=== PATIENT | female | born 1955 | race Caucasian/White ===

== ENCOUNTER 2019-07-02 05:55 | Inpatient (IN) ==
--- NOTE | 2019-05-23 11:39 | Anesthesiology Consultation ---
Date of Service May 23, 2019 Assessment & Plan (1) Encounter for pre-operative examination: Chart Review Chart Review: Acceptable Risk for Surgery (pending preop testing (labs, EKG, CXR)) and Patient seen in Pre Admission Testing Teaching & Discussion Pre-Anesthesia Teaching/Discussion Notes: Instructed NPO after midnight before surgery,except medications with 15 cc of water. Medication instructions provided according to the PAT guidelines. History Surgery Operation Date: 07/02/19 07:00 Proposed Procedures p Right Total Knee Arthroplasty - Levi Hunter MD Height/Weight Height: 5 ft 3 in Weight: 128.5 kg Allergies Allergy/AdvReac Type Severity Reaction Status Date / Time latex Allergy Rash Verified 05/16/19 08:34 Medications Home Medications Medication Instructions Recorded Confirmed Last Taken celecoxib [Celebrex] 200 mg PO QAM 05/16/19 05/16/19 Unknown cholecalciferol (vitamin D3) 5,000 unit PO QAM 05/16/19 05/16/19 Unknown [Vitamin D3] diltiazem HCl 120 mg PO QAM 05/16/19 05/16/19 Unknown hydrocodone-chlorpheniramine 5 ml PO Q12H PRN 05/16/19 05/16/19 Unknown levothyroxine 25 mcg PO QAM 05/16/19 05/16/19 Unknown pantoprazole 40 mg PO QPM 05/16/19 05/16/19 Unknown potassium 99 mg PO BID 05/16/19 05/16/19 Unknown topiramate [Topamax] 50 mg PO QAM 05/16/19 05/16/19 Unknown vortioxetine [Trintellix] 20 mg PO QAM 05/16/19 05/16/19 Unknown albuterol sulfate PRN 05/23/19 Unknown Past Medical History Medical History CKD (chronic kidney disease) Chronic cough allergies related- reason for inhaler (rare use) Depression GERD (gastroesophageal reflux disease) controlled Hiatal hernia History of breast cancer s/p right breast lumpectomy + chemo/radiation (completed 2011); RUE limb restriction Hypertension Hypothyroidism Migraine Morbid obesity Osteoarthritis Past Family History Family History Mother Family history of diabetes mellitus Father Family hx of colon cancer Past Surgical History Surgical History History of breast biopsy BL History of colonoscopy History of lumpectomy of right breast History of lymph node excision Rt axilla History of tonsillectomy and adenoidectomy History of tooth extraction History of vascular access device Removed Past Anesthesia History No Family Hx of Anesthesia Complications and Other During right breast lumpectomy, patient "woke up too early" and became combative/thrashed and "pulled out ETT and tore stitches" 2010. No similar issues with other surgeries/anesthesia. History of PONV No Hx of PONV and Hx of Motion Sickness (remote hx) Social History Smoking Status: Never smoker Do You Dip or Chew Tobacco: No Hx Alcohol Use: Yes alcohol intake frequency: holidays/special occasions only Hx Substance Use: No substance use type: does not use Review of Systems Chronic, allergies-related cough. Reflux controlled. Patient denies chest pain, shortness of breath, wheezing, palpitations. Physical Exam Vital Signs VITALS BP 146/85 P 86 TEMP 97.9 SP02 94%RA RESP 18 PHYSICAL Full neck and c-spine range of motion. Full TMJ range of motion. TMD 4 finger breaths Mallampati Score 2 Dentition: intact, cap on side Lungs: clear throughout to auscultation Cardiac: regular rate and rhythm, no murmurs noted Spine: normal Carotid arteries: negative bruit Extremities: no edema Short, thick neck
--- NOTE | 2019-05-23 11:51 | PAT Medication Instructions ---
Medication Instructions Date of Service May 23, 2019 Home Medications celecoxib [Celebrex] 200 mg PO QAM cholecalciferol (vitamin D3) [Vitamin D3] 5,000 unit PO QAM diltiazem HCl 120 mg PO QAM hydrocodone-chlorpheniramine 5 ml PO Q12H PRN levothyroxine 25 mcg PO QAM pantoprazole 40 mg PO QPM potassium 99 mg PO BID topiramate [Topamax] 50 mg PO QAM vortioxetine [Trintellix] 20 mg PO QAM albuterol sulfate PRN ASK your surgeon for instructions celecoxib [Celebrex] 200 mg PO QAM DO NOT take the morning of surgery cholecalciferol (vitamin D3) [Vitamin D3] 5,000 unit PO QAM potassium 99 mg PO BID Take morning of surgery With a small sip of water, OTHERWISE NOTHING TO EAT OR DRINK AFTER MIDNIGHT: diltiazem HCl 120 mg PO QAM hydrocodone-chlorpheniramine 5 ml PO Q12H PRN (okay to take up to 4 hours prior to surgery if needed) levothyroxine 25 mcg PO QAM topiramate [Topamax] 50 mg PO QAM vortioxetine [Trintellix] 20 mg PO QAM albuterol sulfate PRN (use if needed; please bring with you to hospital day of surgery if possible) Take evening before surgery hydrocodone-chlorpheniramine 5 ml PO Q12H PRN (if needed) pantoprazole 40 mg PO QPM potassium 99 mg PO BID albuterol sulfate PRN (if needed) Other Notes If you have any questions please call us at [phone] or [phone] or [phone] or [phone]
--- NOTE | 2019-05-23 12:19 | XRay Report ---
TWO VIEW CHEST CLINICAL HISTORY: Preoperative examination. FINDINGS: PA and lateral chest radiographs are obtained. No prior studies are available for compariso n at the time of dictation. The cardiomediastinal silhouette is unremarkable. The lungs and pleura l spaces are clear. There is no pneumothorax. The bony thorax appears intact. IMPRESSION: No active disease in the chest. Electronically signed by: Florentin Porter M.D. 05/23/2019 12:18 PM
[2019-05-23 13:14] LABS: Basophils # (auto) 0.02 K/uL (0-0.2); Basophils % (auto) 0.3 %; Eosinophils # (auto) 0.36 K/uL (0-0.5); Eosinophils % (auto) 4.5 %; Hematocrit (blood only) 35.7 % (37-47); Hemoglobin 12.2 g/dL (12.0-16.0); Immature Granulocytes # (auto) 0.03 K/uL (0.00-0.02); Immature Granulocytes % (auto) 0.4 %; Lymphocytes # (auto) 2.17 K/uL (1.2-3.4); Lymphocytes % (auto) 27.2 %; Mean Corpuscular Hemoglobin 31.4 pg (25-34); Mean Corpuscular Hgb Conc 34.2 g/dL (32-36); Mean Corpuscular Volume 91.8 fL (80-100); Mean Platelet Volume 10.5 fL (7.4-10.4); Monocytes # (auto) 0.67 K/uL (0.11-0.59); Monocytes % (auto) 8.4 %; Neutrophils # (auto) 4.74 K/uL (1.4-6.5); Neutrophils % (auto) 59.2 %; Platelet Count 275 K/uL (130-400); RDW Coefficient of Variation 14.4 % (11.5-14.5); RDW Standard Deviation 48.1 fL (36.4-46.3); Red Blood Count 3.89 M/uL (4.2-5.4); White Blood Count 7.99 K/uL (4.8-10.8)
[2019-05-23 13:26] LABS: Partial Thromboplastin Time 25.8 Seconds (21.0-31.0); Prothrombin Time 9.8 Seconds (9.0-12.0)
--- NOTE | 2019-06-28 09:43 | History and Physical Report ---
DATE OF ADMISSION: 07/02/2019 CHIEF COMPLAINT: Bilateral knee pain and discomfort, right side greater than left. HISTORY OF PRESENT ILLNESS: The patient is a 63-year-old female referred to me by my partner, Dr. Rhodes for surgical treatment of her knees. She has got a long history of bilateral knee pain and discomfort that has gradually just gotten worse over the past several years. She has been through extensive conservative treatment including various anti-inflammatory medicines as well as injections. This has become less successful over time. The right knee bothers her more than left. It is global pain. The more she walks, the more it hurts. She has difficulty going up and down stairs. She would like to proceed with a right knee replacement. PAST MEDICAL HISTORY: Significant for: 1. Hypertension. 2. Asthma. 3. Sleep apnea. 4. Hypothyroidism. 5. Low back pain. 6. Gastroesophageal reflux disease. 7. Hiatal hernia. 8. Obesity with a BMI of 50. 9. History of breast cancer in remission. PAST SURGICAL HISTORY: Previous surgeries include: 1. Tonsillectomy as a child. 2. Breast lumpectomy in 2010. ALLERGIES: LATEX. CURRENT MEDICINES: Include: 1. Topamax 50 mg. 2. Diltiazem 120 mg. 3. Celebrex 200 mg. 4. Trintellix 20 mg a day for depression. 4. Lisinopril/hydrochlorothiazide 20/12.5 once a day. 5. Potassium 99 mEq twice a day. 6. Pantoprazole 40 mg a day. SOCIAL HISTORY: A 63-year-old female patient. Does not smoke. FAMILY HISTORY: Noncontributory. REVIEW OF HISTORY: Negative for diabetes, neurologic problems, vascular problems or bleeding disorders. No chest pain or shortness of breath. No history of DVT or PE. PHYSICAL EXAMINATION: GENERAL: Reveals a healthy, pleasant middle-aged female. Looks to be in reasonably good health. HEENT: Benign. NECK: Supple, no lymphadenopathy. LUNGS: Clear to auscultation. HEART: Regular rate and rhythm. ABDOMEN: Soft, nontender, nondistended. EXTREMITIES: Grossly neurovascularly intact except as follows: Examination of the right knee reveals the patient walks with slightly antalgic gait. She waddles from side to side. She has got a large soft tissue envelope. Range of motion is 0-120. She can do a good straight leg raise. No pain with hip motion. Examination of the left hip reveals fairly neutral alignment. Minimal knee effusion. Large soft tissue envelope. Tender over the medial joint line. Range of motion is 0-120. No instability. X-RAYS: X-rays of both knees reveal advanced bilateral knee DJD. She has got complete loss of medial joint space in both knees. She has got osteophytes off the medial femoral condyle and medial tibial plateau on both sides. X-rays are pretty equal in severity. ASSESSMENT: A 63-year-old female with advanced bilateral knee degenerative joint disease, right side more symptomatic than the left. She has failed conservative treatment and would like to proceed with surgery/knee replacement. PLAN: We will take her to the operating room and do a right total knee replacement. The risks and benefits of this procedure were explained to the patient including but not limited to DVT, PE, , infection, neurological injury, vascular injury, bleeding problem, pain, limited range of motion, stiffness, failure to relieve symptoms, incomplete relief of symptoms, need for further surgery in future, fracture, leg length inequality, nerve palsy, etc. The patient understands and desires to proceed. Informed consent was obtained. BHAVANA
[~2019-07-02 05:55] MED LIST: MISSING PHYSICIAN SIGNATURE ON ORDER SCH
[2019-07-02] MEDS ORDERED: CEFAZOLIN 3000MG 72.5 ML IV SCH (06:00)
[2019-07-02] MEDS ORDERED: GABAPENTIN 600 MG DOSE PO SCH (06:00)
[2019-07-02] MEDS ORDERED: SCOPOLAMINE 1.5 MG TDSY TD SCH (06:00)
[2019-07-02] MEDS ORDERED: LR 15ML/HR IV SCH (06:00)
[2019-07-02] MEDS ORDERED: LR 60ML/HR IV SCH (06:00)
[2019-07-02] MEDS ORDERED: BUPIVACAINE LIPOSOME/PF 266 MG, BUPIVACAINE/EPINEPHRINE 50 ML, SODIUM CHLORIDE 0.9% 30 ... INFIL SCH (06:00)
[2019-07-02] MEDS ORDERED: FAMOTIDINE 20 MG TAB PO SCH (06:00)
[2019-07-02] MEDS ORDERED: LR 500ML BOLUS, THEN 15ML/HR IV SCH (06:00)
[2019-07-02] MEDS ORDERED: METOCLOPRAMIDE HCL 10 MG TABLET PO SCH (06:00)
[2019-07-02] MEDS ORDERED: TRANEXAMIC ACID 1,000 MG **IV Intra-op IV SCH (06:30)
[2019-07-02] MEDS ORDERED: BUPIVACAINE 0.5 % 5 MG/1 ML PF 10ML VIAL ONE (06:35)
[2019-07-02] MEDS ORDERED: ROPIVACAINE 0.5% 5 MG/ML 30 ML VIAL ONE (06:35)
--- NOTE | 2019-07-02 06:54 | History & Physical Bridge Note ---
Date of Service July 02, 2019 History & Physical Bridge Note I have examined the patient, reviewed the History & Physical and in the interval since the performance of the History & Physical I have noted the following changes of clinical significance: no changes noted
[2019-07-02] MEDS: ACETAMINOPHEN 500 MG TAB PO SCH ×4 (07:01→20:58)
[2019-07-02] MEDS ORDERED: MIDAZOLAM HCL 1 MG/ML 2ML VIAL ONE ×2 (07:32→08:25)
[2019-07-02] MEDS ORDERED: KETAMINE HCL INJ 50 MG/ML 10 ML VIAL ONE (07:33)
[2019-07-02] MEDS ORDERED: ePHEDrine sulfate 50 MG/ML AMP IV PRN (08:40)
[2019-07-02] MEDS ORDERED: ATROPINE SULFATE 0.1 MG/ML 10ML SYR IV PRN (08:40)
[2019-07-02] MEDS ORDERED: BACITRACIN INJ 50,000 UNIT VIAL ONE (08:54)
[2019-07-02] MEDS ORDERED: BUPIVACAINE LIPOSOME 1.3% 266 MG/20 ML VIAL ONE (08:54)
[2019-07-02] MEDS ORDERED: BUPIVACAINE/EPINEPHRINE 0.25% 1:200,000 30 ML VIAL ONE (08:54)
[2019-07-02] MEDS ORDERED: SODIUM CHLORIDE 0.9% PF 50 ML VIAL ONE (08:54)
[2019-07-02] MEDS ORDERED: BUPIVACAINE 0.25% 30 ML VIAL ONE (08:55)
[2019-07-02] MEDS ORDERED: EPINEPHrine INJ 1 MG/ML AMP ONE (08:55)
[2019-07-02] MEDS ORDERED: LIDOCAINE HCL 2% 2 ML VIAL/AMP(20MG/ML) INFIL ONE (09:22)
[2019-07-02] MEDS ORDERED: GLYCOPYRROLATE 0.2 MG/ML VIAL ONE (09:22)
[2019-07-02] MEDS ORDERED: PROPOFOL IV EMULSION 10 MG/ML 20 ML VIAL IV ONE ×3 (09:22→10:18)
[2019-07-02] MEDS ORDERED: DEXAMETHASONE SOD INJ 4 MG/ML VIAL ONE (09:22)
[2019-07-02] MEDS ORDERED: ONDANSETRON INJ 2 MG/ML 2 ML VIAL ONE (09:22)
--- NOTE | 2019-07-02 11:02 | Operative Report ---
Post Operative Report Pre & Post Diagnosis Operation Date: 07/02/19 08:50 Pre-Op Diagnosis: Right Knee Degenerative Joint Disease with Knee Pain Post-Op Diagnosis: Right Knee Degenerative Joint Disease with Knee Pain I identified the patient and participated in the time-out.: Yes Procedure Operation Date: 07/02/19 08:50 Actual Procedures p Right Total Knee Arthroplasty(Right) - Levi Hunter MD Surgeon Levi Hunter MD [employer] [place], PAC Estimated Blood Loss 50 Findings Consistent with Post-Op Diagnosis Operative findings revealed advanced right knee DJD with grade 4 [id number] disease primarily in the medial compartment. There was less severe grade 4 change of the patellofemoral compartment and fairly mild age-related changes laterally. She had a moderate-sized joint effusion. Osteophytes in the medial compartment. A large soft tissue envelope. Fluids 70207 cc Specimens Right knee sent for pathology. Drains None Anesthesia Type Spinal MAC Complications none Disposition Accompanied Patient To Recovery: No Disposition: Recovery Room Indications 63-year-old female who was referred to be by my partner Dr. Rhodes for surgical treatment of her right knee. She has a long history of bilateral knee pain discomfort right side greater than left. She been through extensive conservative treatment which has become less successful over time. X-rays show advanced bilateral knee DJD. She like to proceed with right total knee arthroplasty. The patient is morbidly obese with a BMI 50. Description of Procedure Operative implants consist of: 1. Biomet Vanguard size 62.5 right posterior bifemoral component. 2. Biomet Vanguard size 63 tibial tray. 3. Biomet 10 mm posterior stabilized polyethylene insert. 4 Biomet size 28 x 8 all poly-patella. Patient is taken to the operating room identified and placed in the operating table in the supine position with all contact areas were appropriately padded. IV antibiotics were provided by anesthesia team. A spinal anesthetic and abductor canal block had been provided in the holding area. Lewis catheter was placed in sterile fashion. A right thigh tourniquet was then placed in the right lower extremity was then prepped and draped in usual sterile fashion. The right leg was elevated and exsanguinated with use of an Esmarch and return was placed at 350 mmHg. An 8 anterior approach to the right knee was then performed to a longitudinal incision centered over the patella. Sharp dissection was gathered through subcutaneous tissue down below the extensor mechanism. She had a very large and thick soft tissue envelope. A medial parapatellar arthrotomy incision was made. Some subperiosteal dissection was carried out medially. The fat pad was resected from beneath patella tendon. Lateral patellofemoral ligament was released. Patella was subluxated laterally and the knee was flexed with the osteophytes taken of the distal femur. The ACL PCL were then released from the distal femur the tibia subluxated anteriorly. The external tibial alignment jig was then placed in the interface of the tibia and adjusted 14 mm medially. Proximal tibial cut was made to remove about 2 mm of bone from the most efficient aspect of the medial tibial plateau. Some osteophytes were taken off medial and posterior medially. The tibia was then sized to a size 63. Attention then drawn to the femur. The distal femur was entered with the sharp drill. The intramedullary canal was suction. A right a 5 degree valgus cutting guide was placed. Distal femoral cutting block was pinned in place but this femoral cut was made to take an additional 3 mm of bone off the distal femur. Femur was then sized to a size 60 2.5P we did down size this slightly. The AP cutting block was pinned parallel to the epicondylar axis which was 3 degrees of external rotation. The anterior cut, and anterior chamfer, posterior cut, posterior chamfer cuts were made. The box cutting guide was then placed. This was placed slightly laterally. The box cut was made. The knee was flexed. The remnants of the medial and lateral menisci were excised. The osteophytes were taken off the posterior aspect of the femur. A trial femoral component was placed with the tibial tray and in maximum external rotation and the drill and stem punch were used to create a defect in the proximal tip for the tibial tray. The knee was then trialed and the 10 mm insert fit most appropriately. Attention down the patella. The patella was cleaned of all soft tissues. Patella thickness measured 18 mm in thickness was cut down to a 12. Was sized to size 28 patella. Locals were drilled for the 28 patella. The lateral osteophyte was removed. Patella button was placed. He was taken through range of motion patella tracked nicely with no thumbs test. Attention turned to placing the permanent components. All trial components were removed. A bone plug was placed in the distal femur to limit blood loss. A double batch [place] G cement was mixed. A Biomet Vanguard size 62.5 right posterior bifemoral component, a size 63 tibial tray, a 10 mm posterior stabilized polyethylene insert, and a 28 x 8 all poly-patella then cement in place. Knee was brought out into full extension until the cement hardened. Final cement check was then performed. Pericapsular tissues were injected with total of 100 cc of combination of 20 cc of Exparel, 30 cc normal saline, 50 cc of quarter percent Marcaine with epinephrine. Patient did receive 1 g of tranexamic acid. The tourniquet was then let down for final tourniquet time of 56 minutes at 3 and 50 mmHg. Hemostasis assured with electrocautery. The wounds once again irrigated. The extensor mechanism closed with combination 1 PDS suture #1 Vicryl suture in [id number] fashion with extensive medical checked and found to be intact the subtenons tissue then closed with 2 Dexon suture in a buried interrupted fashion skin was closed skin raj. Leg was then cleaned dried and sterile dressing was Xeroform for 4 sterile cast padding Parth bandage were applied. Patient then transferred to the recovery room in stable condition. Patient tolerated the procedure well the comp case but all the sponge counts are correct at the end the operation. I attest to the content of the Intraoperative Record and any orders documented therein. Any exceptions are noted below.
--- NOTE | 2019-07-02 11:38 | XRay Report ---
XR knee RT 2V routine CLINICAL HISTORY: Surgical Post Op COMPARISON: None. DISCUSSION: Anatomic alignment posttotal right knee arthroplasty. Could contact between prosthetic an d underlying bone. Expected soft tissue postoperative change IMPRESSION: Anatomic alignment posttotal right knee arthroplasty. The above report was generated using voice recognition software. It may contain grammatical, syntax or spelling errors. Electronically signed by: Rakesh Long M.D. 07/02/2019 11:37 AM
--- NOTE | 2019-07-02 12:06 | Anesthesiology Progress Note ---
Date of Service July 02, 2019 Anesthesia Post Procedure Vital Signs Vital Signs: Temp Pulse Pulse Resp BP Pulse Ox 07/02/19 11:40 37.0 C 80 19 143/79 H 97 07/02/19 11:30 37.1 C 85 18 126/73 98 07/02/19 11:20 37.1 C 80 16 128/73 100 07/02/19 11:10 37.1 C 82 15 125/74 100 07/02/19 11:03 37.1 C 89 16 122/70 97 07/02/19 06:52 36.7 C 81 20 158/71 H 96 Transfer of Care Handoff Completed per policy Notes Mental Status: alert / awake / arousable and participated in evaluation Patient Amnestic to Procedure: Yes Nausea / Vomiting: adequately controlled Pain: adequately controlled Airway Patency, RR, SpO2: stable & adequate BP & HR: stable & adequate Hydration State: stable & adequate Neuraxial Anesthesia: was administered and sensory block is resolving Anesthetic Complications: no major complications apparent
[2019-07-02] MEDS ORDERED: ONDANSETRON INJ 2 MG/ML 2 ML VIAL IV PRN (12:24)
[2019-07-02] MEDS ORDERED: bisacodyL 10 MG SUPP PR PRN (12:24)
[2019-07-02] MEDS ORDERED: METOCLOPRAMIDE HCL INJ 5 MG/ML 2 ML VIAL IV PRN (12:24)
[2019-07-02] MEDS ORDERED: NALOXONE HCL 0.4 MG/1 ML VIAL/CARP IV PRN (12:24)
[2019-07-02] MEDS ORDERED: MAGNESIUM HYDROXIDE SUSP 30 ML UDC PO PRN (12:24)
[2019-07-02] MEDS ORDERED: ALUMINUM/MAGNESIUM SUSP 30 ML UDC PO PRN (12:24)
[2019-07-02] MEDS: SODIUM CHLORIDE 0.9% 1000ML 1,000 ML IV SCH ×2 (12:57→19:48)
--- NOTE | 2019-07-02 14:05 | Progress Note ---
DATE: 07/02/2019 SUBJECTIVE: A 63-year-old female postop from a right knee replacement. She is just starting to get some feeling and pain and discomfort back in her leg. Denies any chest pain or shortness of breath. Not feeling dizzy or lightheaded. OBJECTIVE: VITAL SIGNS: Temperature 36.7. Vital signs stable. GENERAL: Shows a pleasant, middle-aged female. She is lying in bed, looks reasonably comfortable. LUNGS: Clear to auscultation. HEART: Regular rate and rhythm. ABDOMEN: Soft, nontender, nondistended. EXTREMITIES: Grossly neurovascularly intact except as follows: Examination of the right lower extremity reveals the leg to be well aligned. Dressing clean, dry and intact. She can dorsiflex and plantarflex her foot appropriately. She is neurologically intact. X-RAYS: X-rays of the right knee from recovery room reviewed. It shows a right cemented posterior stabilized total knee arthroplasty. Components looked to be in good position. No signs of problems. ASSESSMENT: A 63-year-old female postop from a right knee replacement, doing well. Pain is controlled. She is neurologically intact. PLAN: 1. DVT prophylaxis including thigh-high TEDs, SCDs, and aspirin twice a day. 2. PT/OT. Weight bear as tolerated. Right total knee protocol. 3. Pain control, doing pretty well with current pain regimen. 4. IV antibiotics x24 hours. 5. Disposition: Plan to discharge to home with some home health once adequately recovered.
[2019-07-02] MEDS: KETOROLAC 30 MG/ML VIAL IV SCH ×2 (14:07→17:42)
[2019-07-02] MEDS: TRINTELLIX~ORDER AWAITING ACTION SCH ×2 (14:10→16:55)
[2019-07-02] MEDS: OXYCODONE HCL IR 5 MG TAB (IMMEDIATE RELEASE) PO PRN ×2 (14:34→20:47)
[2019-07-02] MEDS: CEFAZOLIN 2000MG 2,000 MG/15 ML SYR IV SCH (16:55)
[2019-07-02] MEDS: CHECK SCOPOLAMINE PATCH PLACEMENT SCH (16:55)
[2019-07-02] MEDS ORDERED: TRANEXAMIC ACID 1,000 MG in 0.9 % SODIUM CHLORIDE 100 ML IV SCH (17:00)
[2019-07-02] MEDS: HYDROmorphone INJ 0.5 MG/0.5 ML SYR IV PRN ×2 (17:08→22:20)
[2019-07-02] MEDS: FERROUS GLUCONATE 324 MG TAB PO SCH (17:42)
[2019-07-02] MEDS: ASCORBIC ACID 500 MG TAB PO SCH (17:42)
[2019-07-02] MEDS: DOCUSATE SODIUM 100 MG CAP PO SCH (20:57)
[2019-07-02] MEDS: ASPIRIN 81 MG ECTAB PO SCH (20:57)
[2019-07-02] MEDS: SENNA 8.6 MG TAB PO SCH (20:58)
[2019-07-02] MEDS: PANTOprazole 40 MG TAB PO SCH (20:58)
[2019-07-02] MEDS ORDERED: NON-FORMULARY MEDICATION (Potassium 99 MG) PO SCH (21:00)
[2019-07-02] MEDS: TAPENTADOL HCL ER 50 MG TABCR PO SCH (21:01)
[2019-07-03] MEDS: KETOROLAC 30 MG/ML VIAL IV SCH ×5 (00:10→23:50)
[2019-07-03] MEDS: CEFAZOLIN 2000MG 2,000 MG/15 ML SYR IV SCH (00:10)
[2019-07-03] MEDS: CHECK SCOPOLAMINE PATCH PLACEMENT SCH (00:11)
[2019-07-03] MEDS: TRINTELLIX~ORDER AWAITING ACTION SCH ×2 (00:11→08:36)
[2019-07-03] MEDS: SODIUM CHLORIDE 0.9% 1000ML 1,000 ML IV SCH (02:13)
[2019-07-03] MEDS: OXYCODONE HCL IR 5 MG TAB (IMMEDIATE RELEASE) PO PRN ×2 (03:43→10:24)
[2019-07-03 05:02] LABS: Hematocrit (blood only) 31.9 % (37-47); Hemoglobin 10.5 g/dL (12.0-16.0); Mean Corpuscular Hemoglobin 29.8 pg (25-34); Mean Corpuscular Hgb Conc 32.9 g/dL (32-36); Mean Corpuscular Volume 90.6 fL (80-100); Mean Platelet Volume 9.7 fL (7.4-10.4); Platelet Count 246 K/uL (130-400); RDW Coefficient of Variation 13.1 % (11.5-14.5); RDW Standard Deviation 43.2 fL (36.4-46.3); Red Blood Count 3.52 M/uL (4.2-5.4); White Blood Count 15.32 K/uL (4.8-10.8)
[2019-07-03 05:27] LABS: BUN Creatinine Ratio 12.3 (10-20); Calcium 8.4 mg/dl (8.5-10.1); Creatinine Clr Calc Pharmacy 71.1 ml/min; Est GFR (African American) 65.2; Est GFR (Non-African American) 56.2; Potassium 4.3 mmol/L (3.5-5.1)
[2019-07-03] MEDS: ACETAMINOPHEN 500 MG TAB PO SCH ×3 (05:30→20:23)
[2019-07-03] MEDS: LEVOTHYROXINE SODIUM 25 MCG TABLET PO SCH (05:31)
[2019-07-03] MEDS: ASPIRIN 81 MG ECTAB PO SCH ×2 (08:35→20:22)
[2019-07-03] MEDS: FERROUS GLUCONATE 324 MG TAB PO SCH ×2 (08:35→17:27)
[2019-07-03] MEDS: TOPIRAMATE 50 MG TAB PO SCH (08:35)
[2019-07-03] MEDS: DOCUSATE SODIUM 100 MG CAP PO SCH ×2 (08:35→20:23)
[2019-07-03] MEDS: dilTIAZem ER 120 MG CAPCR PO SCH (08:35)
[2019-07-03] MEDS: ASCORBIC ACID 500 MG TAB PO SCH ×2 (08:36→17:27)
[2019-07-03] MEDS: MULTIVITAMIN TAB PO SCH (08:36)
[2019-07-03] MEDS: CHOLECALCIFEROL 1,000 UNITS TAB PO SCH (08:36)
[2019-07-03] MEDS: TAPENTADOL HCL ER 50 MG TABCR PO SCH ×2 (08:39→20:23)
--- NOTE | 2019-07-03 12:50 | Progress Note ---
DATE: 07/03/2019 SUBJECTIVE: A 63-year-old female postop day 1 from right knee replacement. She is doing pretty well. Pain has been controlled. Had a reasonable night. No chest pain or shortness of breath. Not feeling dizzy or lightheaded. OBJECTIVE: VITAL SIGNS: Temperature 36.6. Vital signs stable. GENERAL: Shows a pleasant, middle-aged female. She is sitting up in bed, looks pretty comfortable. EXTREMITIES: Examination of the right leg reveals the dressing to be clean, dry and intact. She can dorsiflex and plantarflex her foot appropriately. She is neurologically intact. LABORATORY DATA: Hemoglobin is 10.5. Hematocrit 31.9. White cell count 15.32. Electrolytes are stable. ASSESSMENT: A 63-year-old female postoperative day 1 from right knee replacement, doing pretty well. Pain has been controlled. She is anemic, but without symptoms. PLAN: 1. DVT prophylaxis including thigh-high TEDs, SCDs, and aspirin twice a day. 2. PT/OT. Weight bear as tolerated. Right total knee protocol. 3. Pain control, doing pretty well with current pain regimen. 4. Disposition: She is planning to be discharged to home with some home health once adequately recovered and medically stable.
[2019-07-03] MEDS: HYDROmorphone INJ 0.5 MG/0.5 ML SYR IV PRN (15:07)
[2019-07-03] MEDS: SENNA 8.6 MG TAB PO SCH (20:23)
[2019-07-03] MEDS: PANTOprazole 40 MG TAB PO SCH (20:23)
[2019-07-04] MEDS: ACETAMINOPHEN 500 MG TAB PO SCH (05:38)
[2019-07-04] MEDS: KETOROLAC 30 MG/ML VIAL IV SCH (05:38)
[2019-07-04] MEDS: LEVOTHYROXINE SODIUM 25 MCG TABLET PO SCH (05:38)
--- NOTE | 2019-07-04 07:40 | Progress Note ---
DATE: 07/04/2019 SUBJECTIVE: A 63-year-old white female postop day #2 from right knee replacement. She is doing pretty well. Pain seems to be a little bit better this morning. No chest pain or shortness of breath. Not feeling dizzy or lightheaded. OBJECTIVE: VITAL SIGNS: Temperature 37.0. Vital signs stable. GENERAL: Shows a pleasant, middle-aged female. She is lying in bed, looks comfortable. EXTREMITIES: Examination of the right leg reveals the leg to be well aligned. Dressing is clean, dry and intact. Fairly mild swelling. Calf is soft and supple. She is neurologically intact. ASSESSMENT: A 63-year-old white female postop day #2 from right knee replacement, doing well. Pain is controlled. PLAN: 1. DVT prophylaxis including thigh-high TEDs, SCDs, and aspirin twice a day. 2. PT/OT. Weight bear as tolerated. Right total knee protocol. 3. Pain control, doing pretty well with current pain regimen. 4. Disposition: Plan to discharge to home with some home health later today.
[2019-07-04] MEDS: OXYCODONE HCL IR 5 MG TAB (IMMEDIATE RELEASE) PO PRN (07:51)
[2019-07-04] MEDS: FERROUS GLUCONATE 324 MG TAB PO SCH (07:52)
[2019-07-04] MEDS: ASCORBIC ACID 500 MG TAB PO SCH (07:53)
[2019-07-04] MEDS: TAPENTADOL HCL ER 50 MG TABCR PO SCH (08:30)
[2019-07-04] MEDS: dilTIAZem ER 120 MG CAPCR PO SCH (08:30)
[2019-07-04] MEDS: MULTIVITAMIN TAB PO SCH (08:30)
[2019-07-04] MEDS: CHOLECALCIFEROL 1,000 UNITS TAB PO SCH (08:30)
[2019-07-04] MEDS: TOPIRAMATE 50 MG TAB PO SCH (08:30)
[2019-07-04] MEDS: DOCUSATE SODIUM 100 MG CAP PO SCH (08:31)
[2019-07-04] MEDS: ASPIRIN 81 MG ECTAB PO SCH (08:31)
--- NOTE | 2019-07-10 11:33 | Discharge Summary ---
ADMITTING PHYSICIAN AND SURGEON: Levi Hunter MD ADMITTING DIAGNOSIS: Right knee degenerative joint disease. SURGERY PERFORMED: Right total knee arthroplasty. SECONDARY DIAGNOSES: Hypertension, asthma, sleep apnea, hypothyroidism, low back pain, gastroesophageal reflux disease, hiatal hernia, obesity, history of breast cancer. CONSULTATIONS: None obtained. HISTORY AND PHYSICAL EXAMINATION: Well documented in the patient's chart. HOSPITAL COURSE: The patient was admitted on 07/02/2019, underwent total knee arthroplasty, tolerated the procedure well. There were no complications. She was transferred to the PACU postoperatively and later to the orthopedic floor for further care. She was given Ancef for antibiotic prophylaxis, ROXANA stockings, SCDs, and aspirin for DVT prophylaxis. Hemoglobin, hematocrit, and vital signs were monitored during her hospital stay and remained stable. She did not require any blood transfusions. There were no complications. By postoperative day 2, she was tolerating a regular diet. Pain was controlled with oral pain medicine. She was participating in physical therapy. On postop day 2, she was discharged home, set up with home health services. She was given printed discharge instructions including new prescriptions for Extra Strength Tylenol, aspirin, iron supplement, and oxycodone. Continue her home medications, continue physical therapy, weightbearing as tolerated, ROXANA stockings. Follow up in approximately 2 weeks postop or sooner if there are any problems or concerns.
== END 2019-07-04 11:00 | disposition home health service (06) | DRG 470 ==
LOC: ASU 05:55 → 3E 11:07

== ENCOUNTER 2024-06-21 07:46 | Observation (INO) ==
--- NOTE | 2024-05-27 12:56 | PAT Medication Instructions ---
Medication Instructions Date of Service May 27, 2024 Home Medications cholecalciferol (vitamin D3) 125 mcg (5,000 unit) tablet (Vitamin D3) 5,000 unit PO QAM hydrocodone 10 mg-chlorpheniramine 8 mg/5 mL oral susp extend.rel 12hr 5 ml PO Q12H PRN levothyroxine 25 mcg tablet 25 mcg PO QAM topiramate 50 mg tablet (Topamax) 50 mg PO QAM lisinopril 10 mg tablet 10 mg PO QAM albuterol 90 mcg/actuation aerosol inhaler 90 mcg inhalation DIRECTED PRN calcium carbonate 600 mg PO DAILY diltiazem HCl 120 mg capsule,24 hr,extended release 240 mg PO QAM doxepin 50 mg capsule 50 mg PO HS PRN esomeprazole magnesium 40 mg capsule,delayed release (Nexium) 40 mg PO HS fluticasone 100 mcg-salmeterol 50 mcg/dose blistr powdr for inhalation (Advair Diskus) 1 inh inhalation BID meloxicam 15 mg tablet 15 mg PO HS potassium 99 mg tablet 198 mg PO BID vilazodone 20 mg tablet (Viibryd) 20 mg PO QAM cyanocobalamin (vitamin B-12) 250 mcg tablet 250 mcg PO HS hydroxyzine HCl 50 mg tablet 50 mg PO BID PRN Continue as directed albuterol 90 mcg/actuation aerosol inhaler 90 mcg inhalation DIRECTED PRN(use if needed; please bring with you to hospital day of surgery if possible) ASK your surgeon for instructions meloxicam 15 mg tablet 15 mg PO HS DO NOT take the morning of surgery cholecalciferol (vitamin D3) 125 mcg (5,000 unit) tablet (Vitamin D3) 5,000 unit PO QAM hydrocodone 10 mg-chlorpheniramine 8 mg/5 mL oral susp extend.rel 12hr 5 ml PO Q12H PRN lisinopril 10 mg tablet 10 mg PO QAM calcium carbonate 600 mg PO DAILY potassium 99 mg tablet 198 mg PO BID Take morning of surgery With a small sip of water, OTHERWISE NOTHING TO EAT OR DRINK AFTER MIDNIGHT: levothyroxine 25 mcg tablet 25 mcg PO QAM topiramate 50 mg tablet (Topamax) 50 mg PO QAM diltiazem HCl 120 mg capsule,24 hr,extended release 240 mg PO QAM fluticasone 100 mcg-salmeterol 50 mcg/dose blistr powdr for inhalation (Advair Diskus) 1 inh inhalation BID vilazodone 20 mg tablet (Viibryd) 20 mg PO QAM hydroxyzine HCl 50 mg tablet 50 mg PO BID PRN(if needed) Take evening before surgery hydrocodone 10 mg-chlorpheniramine 8 mg/5 mL oral susp extend.rel 12hr 5 ml PO Q12H PRN(if needed) doxepin 50 mg capsule 50 mg PO HS PRN(if needed) fluticasone 100 mcg-salmeterol 50 mcg/dose blistr powdr for inhalation (Advair Diskus) 1 inh inhalation BID esomeprazole magnesium 40 mg capsule,delayed release (Nexium) 40 mg PO HS potassium 99 mg tablet 198 mg PO BID cyanocobalamin (vitamin B-12) 250 mcg tablet 250 mcg PO HS hydroxyzine HCl 50 mg tablet 50 mg PO BID PRN(if needed) Other Notes If you have any questions please call us at [phone] or [phone] or [phone] or [phone]
--- NOTE | 2024-06-04 09:18 | Anesthesiology Consultation ---
Date of Service June 04, 2024 Assessment & Plan (1) Encounter for pre-operative examination: - Outpatient joint assessment: Pt currently scheduled for inpatient pathway. If surgeon requests review for outpatient joint pathway, patient is not recommended candidate for outpatient joint program from anesthesia standpoint based on available information. - Infectious disease screening: Per assessment on 06/04/24: No known recent infectious disease contacts. Patient was Covid positive 05/22/24 (home test). Symptoms at time: cough, headache. Patient seen at PAT 06/04/24. Patient took Paxlovid and symptoms have resolved. Patient can proceed as scheduled without additional preop Covid testing or additional Covid contact precautions per current protocol. - S/P Right TKA (07/02/19): SAB at L3-4 (1 attempt) + regional at [facility]. - RUE limb restriction Chart Review Chart Review: Acceptable Risk for Surgery and Patient seen in Pre Admission Testing Teaching & Discussion Pre-Anesthesia Teaching/Discussion Notes: Instructed NPO after midnight before surgery,except medications with 15 cc of water. Medication instructions provided according to the [facility] guidelines. History Surgery Operation Date: 06/21/24 07:00 Proposed Procedures p Left Total Knee Arthroplasty - Levi Hunter MD Height/Weight Height: 5 ft 3 in Weight: 124.4 kg Allergies Allergy/AdvReac Type Severity Reaction Status Date / Time latex Allergy Intermediate Hives Verified 05/23/24 13:57 Medications Home Medications Medication Instructions Recorded Confirmed Last Taken cholecalciferol (vitamin D3) 125 5,000 unit PO QAM 05/16/19 05/23/24 1 Week Ago mcg (5,000 unit) tablet (Vitamin ~06/25/19 D3) hydrocodone 10 mg-chlorpheniramine 5 ml PO Q12H PRN Cough 05/16/19 05/23/24 07/01/19 20:00 8 mg/5 mL oral susp extend.rel 12hr levothyroxine 25 mcg tablet 25 mcg PO QAM 05/16/19 05/23/24 07/02/19 04:30 topiramate 50 mg tablet (Topamax) 50 mg PO QAM 05/16/19 05/23/24 07/02/19 04:30 lisinopril 10 mg tablet 10 mg PO QAM 08/22/19 05/23/24 Unknown albuterol 90 mcg/actuation aerosol 90 mcg inhalation DIRECTED PRN 03/28/24 05/23/24 Unknown inhaler Wheezing calcium carbonate 600 mg PO DAILY 03/28/24 05/23/24 Unknown diltiazem HCl 120 mg capsule,24 240 mg PO QAM 03/28/24 05/23/24 Unknown hr,extended release doxepin 50 mg capsule 50 mg PO HS PRN Insomnia 03/28/24 05/23/24 Unknown esomeprazole magnesium 40 mg 40 mg PO HS 03/28/24 05/23/24 Unknown capsule,delayed release (Nexium) fluticasone 100 mcg-salmeterol 50 1 inh inhalation BID 03/28/24 05/23/24 Unknown mcg/dose blistr powdr for inhalation (Advair Diskus) meloxicam 15 mg tablet 15 mg PO HS 03/28/24 05/23/24 Unknown potassium 99 mg tablet 198 mg PO BID 03/28/24 05/23/24 Unknown vilazodone 20 mg tablet (Viibryd) 20 mg PO QAM 03/28/24 05/23/24 Unknown cyanocobalamin (vitamin B-12) 250 250 mcg PO HS 05/23/24 05/23/24 Unknown mcg tablet hydroxyzine HCl 50 mg tablet 50 mg PO BID PRN Anxiety 05/23/24 05/23/24 Unknown Past Medical History Medical History Asthma well controlled, rare res inh use Chronic cough allergies related- reason for inhaler (rare use) CKD (chronic kidney disease) no specialist Depression GERD (gastroesophageal reflux disease) controlled Hiatal hernia History of breast cancer s/p right breast lumpectomy + chemo/radiation (completed 2011); RUE limb restriction History of COVID-19 home test positive 05/22/24 > headache, cough Hypertension Hypothyroidism Migraine Morbid obesity Osteoarthritis Urge incontinence Exercise / Class Metabolic Activity III < 4 Walking/Shop/Light housework (one FS: No CP, + mild SOB) Past Family History Family History Mother Family history of diabetes mellitus Father Family hx of colon cancer Past Surgical History Surgical History History of breast biopsy B/L History of carpal tunnel release B/L History of colonoscopy History of lumpectomy of right breast History of lymph node excision Right axilla History of tonsillectomy and adenoidectomy History of tooth extraction History of total right knee replacement History of vascular access device Removed Past Anesthesia History Other (Tried to remove breathing tube/stiches herself with anesthesia emergence) * Daughter: given "too much anesthesia"during electroshock therapy- heart stopped/"flat-lined", needed resuscitation/intubation x 4 days > trach/vocal cord paralyzed History of PONV History of PONV (Remote post-op nausea (as child)) and Hx of Motion Sickness (Remote hx) Social History Smoking Status: Never smoker Do You Dip or Chew Tobacco: No Hx Alcohol Use: Yes Alcohol type: hard liquor alcohol intake frequency: holidays/special occasions only Hx Substance Use: No substance use type: does not use Review of Systems Patient denies chest pain, shortness of breath, fever, chills, cough, wheezing, palpitations. Physical Exam Vital Signs BP 138/69 P 78 TEMP 98.0 SP02 97%RA RESP 18 Physical Full cervical extension range of motion. Full TMJ range of motion. TMD > 3.5 finger breaths Mallampati Score II Dentition: intact Lungs: clear throughout to auscultation Cardiac: regular rate and rhythm, no murmurs noted Spine: normal Carotid arteries: negative bruit Extremities: no LE edema Short neck Lab Results Anesthesia Preop Results Results Anesthesia Widget: WBC 8.32 K/ul (4.8-10.8) 06/04/24 Hgb 12.0 g/dl (12.0-16.0) 06/04/24 Hct 38.2 % (37.0-47.0) 06/04/24 Plt 285 K/uL (130-400) 06/04/24 Na 141 mmol/L (136-145) 06/04/24 K 4.1 mmol/L (3.5-5.1) 06/04/24 Cl 108 mmol/L (98-107) H 06/04/24 CO2 26 mmol/L (21-32) 06/04/24 BUN 19 mg/dl (6-23) 06/04/24 Creat 1.05 mg/dl (0.6-1.2) 06/04/24 Glucose Level 106 mg/dl (70-99(Fasting)) H 06/04/24 PT 10.3 Seconds (9.0-12.0) 06/04/24 PTT 27 Seconds (21-31) 06/04/24 INR 0.9 (0.9-1.1) 06/04/24 Blood Type A Negative 06/04/24 Antibody Screen NEGATIVE 06/04/24 Testing Electrocardiogram Date: 06/04/24 NSR at 78bpm. "Normal ECG" Chest X-Ray Date: 06/04/24 Findings: + NAD
--- NOTE | 2024-06-15 11:26 | History & Physical Report ---
Date of Service June 15, 2024 Assessment & Plan (1) Left knee DJD: 68-year-old female 5 years out from right knee replacement with advanced left knee DJD. She has failed conservative care. She like proceed with left knee replacement. Plan: Poppy taken to the operating do left total knee replacement for the risks Mente this procedure explained in depth. She understands and desires to proceed. Informed consent was obtained. She is planned to be discharged to home. Her can assist in her care. We use aspirin for DVT prophylaxis. (2) Status post right knee replacement: (3) Morbid obesity: (4) Asthma: (5) Hiatal hernia: (6) GERD (gastroesophageal reflux disease): (7) Hypothyroidism: (8) History of breast cancer: (9) Hypertension: History of Present Illness Chief Complaint: . Persistent left knee pain and discomfort. Primary Care Provider: Levi Rivera MD . The patient is a 68-year-old female who presents now for surgical treatment of her left knee. She got a long history of knee arthritis had a right knee replaced 5 years ago. She done pretty well with this. Over the years she developed increased pain discomfort of left knee. She been through extensive conservative treatment which become less successful over time. He is actually resorted to using a wheeled walker due to the pain. She has difficulty getting through the grocery store. She is happy with the right knee would like to have her left knee replaced. Allergies Allergy/AdvReac Type Severity Reaction Status Date / Time latex Allergy Intermediate Hives Verified 05/23/24 13:57 Home Medications Medication Instructions Recorded Confirmed Type cholecalciferol (vitamin D3) 125 5,000 unit PO QAM 05/16/19 05/23/24 History mcg (5,000 unit) tablet (Vitamin D3) hydrocodone 10 mg-chlorpheniramine 5 ml PO Q12H PRN Cough 05/16/19 05/23/24 History 8 mg/5 mL oral susp extend.rel 12hr levothyroxine 25 mcg tablet 25 mcg PO QAM 05/16/19 05/23/24 History topiramate 50 mg tablet (Topamax) 50 mg PO QAM 05/16/19 05/23/24 History lisinopril 10 mg tablet 10 mg PO QAM 08/22/19 05/23/24 History albuterol 90 mcg/actuation aerosol 90 mcg inhalation DIRECTED PRN 03/28/24 05/23/24 History inhaler Wheezing calcium carbonate 600 mg PO DAILY 03/28/24 05/23/24 History diltiazem HCl 120 mg capsule,24 240 mg PO QAM 03/28/24 05/23/24 History hr,extended release doxepin 50 mg capsule 50 mg PO HS PRN Insomnia 03/28/24 05/23/24 History esomeprazole magnesium 40 mg 40 mg PO HS 03/28/24 05/23/24 History capsule,delayed release (Nexium) fluticasone 100 mcg-salmeterol 50 1 inh inhalation BID 03/28/24 05/23/24 History mcg/dose blistr powdr for inhalation (Advair Diskus) meloxicam 15 mg tablet 15 mg PO HS 03/28/24 05/23/24 History potassium 99 mg tablet 198 mg PO BID 03/28/24 05/23/24 History vilazodone 20 mg tablet (Viibryd) 20 mg PO QAM 03/28/24 05/23/24 History cyanocobalamin (vitamin B-12) 250 250 mcg PO HS 05/23/24 05/23/24 History mcg tablet hydroxyzine HCl 50 mg tablet 50 mg PO BID PRN Anxiety 05/23/24 05/23/24 History Past Med/Surg History Problem List (Updated 06/15/24 @ 11:25 by Levi Hunter MD) Status post right knee replacement Left knee DJD Plantar fasciitis, left Degenerative arthritis of knee, bilateral Encounter for pre-operative examination Medical History Urge incontinence Asthma well controlled, rare res inh use History of COVID-19 home test positive 05/22/24 > headache, cough Morbid obesity CKD (chronic kidney disease) no specialist Osteoarthritis Hiatal hernia GERD (gastroesophageal reflux disease) controlled Hypothyroidism History of breast cancer s/p right breast lumpectomy + chemo/radiation (completed 2011); RUE limb restriction Depression Migraine Hypertension Chronic cough allergies related- reason for inhaler (rare use) Surgical History History of carpal tunnel release B/L History of total right knee replacement History of tonsillectomy and adenoidectomy History of tooth extraction History of colonoscopy History of vascular access device Removed History of lymph node excision Right axilla History of lumpectomy of right breast History of breast biopsy B/L Family History Mother Family history of diabetes mellitus Father Family hx of colon cancer Social History Smoking Status: Never smoker Second Hand Exposure: No; Do You Dip or Chew Tobacco: No; Hx Alcohol Use: Yes Alcohol type: hard liquor Hx Substance Use: No Preferred Language: Palestinian Communication Ability: Effective Payroll Examiner Required: No Beliefs That Will Affect Care: None marital status: Current Living Situation: Spouse Feels Safe at Home: Yes Assistive Devices: Glasses Review of Systems All systems reviewed & are unremarkable except as noted in HPI & below. Physical Exam . Physical examination was a pleasant middle-age female. Fairly large lady. Examination left knee reveal patient walks with use of wheeled walker. Got a moderate to large soft tissue envelope. She got varus alignment to her knee. She is tender over the medial joint line. Range of motion is 5-1 20. No instability. No particular pain with hip motion. Examination the right knee reveals a well-healed incision. Large soft tissue envelope. Range of motion 0-1 20. Good straight leg raise. Constitutional WD/WN, vitals as above Respiratory normal respiratory effort, lungs clear to auscultation Cardiovascular RRR, no murmur, no edema Gastrointestinal (Abdomen) normal bowel sounds, soft, nontender, no hepatosplenomegaly Results & Data Results & Data Laboratory Results . Diagnostic Findings . X-rays left knee reviewed. Shows advanced left knee DJD. She has complete loss of the medial joint space. Got subchondral sclerosis. Osteophytes mostly medially. She does have tricompartment disease. X-rays of the right knee reveal well-positioned knee replacement. No signs of problems. PG Care Time/CCT Total # of Minutes Spent Total Time Spent with Patient: Total time spent is greater than 50% in coordination of care (as documented) at patient's floor/unit and/or counseling patient: Coding Level of Care Code None Diagnoses Left knee DJD M17.12 Status post right knee replacement Z96.651 Morbid obesity E66.01 Asthma J45.909 Hiatal hernia K44.9 GERD (gastroesophageal reflux disease) K21.9 Hypothyroidism E03.9 History of breast cancer Z85.3 Hypertension I10
[~2024-06-21 07:46] MED LIST changes: +BUPIVACAINE 0.5 % 5 MG/1 ML PF 10ML VIAL ONE; +EPINEPHrine INJ 1 MG/ML AMP ONE; -MISSING PHYSICIAN SIGNATURE ON ORDER SCH; +ROPIVACAINE 0.5% 5 MG/ML 30 ML VIAL ONE
--- NOTE | 2024-06-21 08:57 | History & Physical Bridge Note ---
Date of Service June 21, 2024 History & Physical Bridge Note I have examined the patient, reviewed the History & Physical and in the interval since the performance of the History & Physical I have noted the following changes of clinical significance: no changes noted
[2024-06-21] MEDS: LR 60ML/HR IV SCH (09:06)
[2024-06-21] MEDS: CeleBREX 200 MG CAP PO SCH (09:06)
[2024-06-21] MEDS: ACETAMINOPHEN 500 MG TAB PO SCH ×2 (09:06→16:07)
[2024-06-21] MEDS: METOCLOPRAMIDE HCL 10 MG TABLET PO SCH (09:06)
[2024-06-21] MEDS: LR 500ML BOLUS, THEN 15ML/HR IV SCH (09:06)
[2024-06-21] MEDS: FAMOTIDINE 20 MG TAB PO SCH (09:07)
[2024-06-21] MEDS ORDERED: PROPOFOL IV EMULSION 10 MG/ML 20 ML VIAL IV ONE ×2 (09:53→12:39)
[2024-06-21] MEDS ORDERED: MIDAZOLAM HCL 1 MG/ML 2ML VIAL ONE (09:54)
[2024-06-21] MEDS ORDERED: KETAMINE HCL 10MG/ML SYR ONE (10:03)
[2024-06-21] MEDS ORDERED: ePHEDrine sulfate 50 MG/ML AMP IV PRN (11:45)
[2024-06-21] MEDS ORDERED: ATROPINE SULFATE 0.1 MG/ML 10ML SYR IV PRN (11:45)
[2024-06-21] MEDS: ceFAZolin 3000MG 3,000 MG/72.5 ML BAG IV SCH (11:46)
[2024-06-21] MEDS ORDERED: DEXAMETHASONE SOD INJ 4 MG/ML VIAL ONE (11:54)
[2024-06-21] MEDS ORDERED: PHENYLEPHRINE 100MCG/ML 10ML SYR IV ONE (12:01)
[2024-06-21] MEDS: ORTHO JOINT ANESTHETIC ONE (12:19)
[2024-06-21] MEDS: TRANEXAMIC ACID 1,000 MG **IV Intra-op IV SCH (12:42)
[2024-06-21] MEDS: ROPIV 0.5% 246mg, Ketorolac 30mg, EPINEPHrine 0.5mg in NSS INFIL SCH (13:02)
--- NOTE | 2024-06-21 13:38 | Operative Report ---
PG Post Operative Report Pre & Post Diagnosis Operation Date: 06/21/24 10:10 Pre-Op Diagnosis: Left Knee Degenerative Joint Disease Post-Op Diagnosis: Left Knee Degenerative Joint Disease I identified the patient and participated in the time-out.: Yes Procedure Operation Date: 06/21/24 10:10 Actual Procedures p Left Total Knee Arthroplasty(Left) - Levi Hunter MD Surgeon Levi Hunter MD Agency Appointments Supervisor Kamron Fraga PA-C Estimated Blood Loss 100 Findings Consistent with Post-Op Diagnosis Operative findings were advanced left knee DJD. She had a very large soft tissue envelope. She extensive grade 4 changes medially. Moderate-sized joint effusion. Specimens Left knee sent for pathology Anesthesia Type Spinal MAC Complications none Disposition Accompanied Patient To Recovery: No Indications Patient is a 68-year-old female is had a long history of bilateral knee pain discomfort described to gotten worse over time. She had a right knee replaced about 5 years ago and done well from this. She continued be limited by left knee pain and discomfort which gradually got worse over the past several years. She been through extensive conservative treatment. She elected proceed with left total knee arthroplasty. Description of Procedure Operative implants consist of: 1 Biomet Vanguard size 65 left posterior stabilized femoral component. 2. Biomet size 67 tibial tray. 3. 10 mm posterior stabilized polyethylene insert. 4. 28 x 8 all poly patella. The patient was taken the op room, identified, placed on the operative table in supine position. Protectors were appropriately padded. IV antibiotics tried by anesthesia team. A spinal anesthetic at the implement holding area. Lewis catheter was placed in a sterile fashion. A left thigh tent was then placed. The left lower extremities then prepped and draped in usual sterile fashion. The left leg was elevated exsanguinated with use of an Esmarch and was placed at 350 mmHg. An anterior approach the left knee was then performed to longitudinal incision centered over the patella. Sharp dissection Through subcutaneous tissue down the extensor mechanism. She had a very thick soft tissue envelope. A medial parapatellar arthrotomy incision was made. Some subperiosteal dissection was medially. The fat pad was dissected from Neath patella tendon. The lateral patellofemoral ligament was released. Patella subluxated laterally knee was flexed. The osteophyte taken off distal femur. ACL PCL were then released from distal femur the tibia subluxated anteriorly. The external tibial alignment jig was then placed on the interface the tibia and adjusted 14 mm medially. Proximal tibial cut was made to remove about a millimeter at most from the most efficient aspect medial tibial plateau. Some osteophytes taken off medially. The tibia sized to a size 67. Attention drawn the femur. The distal femur examined the sharp drill. Intramedullary canal was suction. A left 5 degree valgus cutting guide was placed. Distal femoral cutting block was pinned in place. This femoral cut was made to take an additional 3 mm of bone off distal femur. The femur was then sized to a size 65. The AP cutting block was pinned parallel to the epicondylar axis which was 4 degrees of external rotation. The anterior cut, anterior chamfer, posterior cut, posterior chamfer cuts were made. The box cutting guide was placed and adjust slight lateral box cut was made. The knee was flexed. The remnants of the medial and lateral menisci were excised. The osteophytes were taken off the posterior aspect the femur. A trial femoral component was placed. The tibial tray was pinned Lilliam external rotation and the drill and stem punch used. Defect in proximal tibia for the tibial tray. The knee was then trialed and the 10 mm insert fit most peripherally. Attention drawn the patella. Patella is cleaned of all soft tissue. I cannot al the patella due to her large soft tissue envelope so we had decided in a transverse fashion. The patella thickness measured 20 mm in thickness was cut down to 13. Was sized to a size 28 patella. The lug holes were drilled for the 28 patella. The lateral osteophytes removed. Patella button was placed. Knee was taken through range of motion patella tracked nicely with no thumbs test. Attention drawn to place the permanent components. Nupathe all trial components were removed. Bone plug was placed into this femur limit blood loss. A double batch Palacos G cement was mixed. A Biomet Vanguard size 65 left posterior stabilized femoral component, a size 67 tibial tray, 10 mm posterior Byce polyethylene insert, and a 28 x 8 all poly patella then cemented in place. Knee was brought out into full extension till cement hardened. Final cement check was then performed. The pericapsular tissues were injected with a total of 100 cc of Ortho mix. Patient did receive 1 g tranexamic acid. It was then let down for final tourniq uet time 62 minutes. Hemostasis was reduce electrocautery. Extensor [place]clomen closed with combination with #1 PDS suture #1 Vicryl suture in [id number] fashion. Extensor Meclomen checked found to be intact through subcutaneous tissue then closed with 2 Dexon suture in a buried interrupted fashion skin was closed skin raj. Leg was then cleaned and dried and a sterile dressing with Xeroform, 4 fours, sterile cast padding and an Parth bandage were applied. The patient then transferred to the recovery room in stable condition. Patient tolerated procedure well and there were no complications. Kamron Fraga, my physician assistant professor of drama, was present for the entire procedure. His assistance was essential and required for appropriate patient positioning, prepping and draping, surgical exposure, performing the technical details of the operation, placement the implants, closure of the wound, and placement of the sterile bandage. I attest to the content of the Intraoperative Record and any orders documented therein. Any exceptions are noted below.
--- NOTE | 2024-06-21 14:07 | XRay Report ---
TWO VIEWS LEFT KNEE CLINICAL HISTORY: Postoperative examination. FINDINGS: AP and crosstable lateral portable views of the left knee are obtained. A left knee arthrop lasty is in near anatomic alignment. There has been undersurface remodeling of the patella. No acute fracture is seen. There are expected postoperative changes around the knee including skin clips, soft tissue edema, and subcutaneous gas. IMPRESSION: Expected postoperative changes status post left knee arthroplasty. No acute fracture is s een. ACT 112: Negative or not required by law. Electronically signed by: Florentin Porter M.D. 06/21/2024 2:05 PM
--- NOTE | 2024-06-21 14:21 | Anesthesiology Progress Note ---
Date of Service June 21, 2024 Anesthesia Post Procedure Vital Signs Vital Signs: Temp Pulse Pulse Resp BP Pulse Ox O2 Del Method 06/21/24 14:15 36.4 C L 74 18 152/79 H 96 Room Air 06/21/24 14:05 74 16 140/64 96 Room Air 06/21/24 13:55 72 18 131/73 96 Nasal Cannula 06/21/24 13:45 71 16 146/60 H 99 Nasal Cannula 06/21/24 13:36 37 C 86 18 126/66 99 Nasal Cannula 06/21/24 09:00 36.9 C 84 18 153/62 H 97 Room Air 06/21/24 08:37 Room Air O2 Flow Rate 06/21/24 14:15 06/21/24 14:05 06/21/24 13:55 2 06/21/24 13:45 2 06/21/24 13:36 4 06/21/24 09:00 06/21/24 08:37 Pain Intensity Left Knee: Pain Intensity: 0 Transfer of Care Handoff Completed per policy Notes Mental Status: alert / awake / arousable Patient Amnestic to Procedure: Yes Nausea / Vomiting: adequately controlled Pain: adequately controlled Airway Patency, RR, SpO2: stable & adequate BP & HR: stable & adequate Hydration State: stable & adequate Neuraxial Anesthesia: was administered and sensory block is resolving Anesthetic Complications: no major complications apparent
[2024-06-21] MEDS ORDERED: METOCLOPRAMIDE HCL INJ 5 MG/ML 2 ML VIAL IV PRN (15:46)
[2024-06-21] MEDS ORDERED: hydrOXYzine HCl 25 MG TAB PO PRN (15:46)
[2024-06-21] MEDS ORDERED: bisacodyL 10 MG SUPP PR PRN (15:46)
[2024-06-21] MEDS ORDERED: HYDROmorphone INJ 0.5 MG/0.5 ML SYR IV PRN (15:46)
[2024-06-21] MEDS ORDERED: MAGNESIUM HYDROXIDE SUSP 30 ML UDC PO PRN (15:46)
[2024-06-21] MEDS ORDERED: ALUMINUM/MAGNESIUM SUSP 30 ML UDC PO PRN (15:46)
[2024-06-21] MEDS ORDERED: NALOXONE HCL 0.4 MG/1 ML VIAL/CARP IV PRN (15:46)
[2024-06-21] MEDS ORDERED: ONDANSETRON 4 MG OD TAB PO PRN (15:46)
[2024-06-21] MEDS ORDERED: ALBUTEROL HFA 8 GM INHALER INH PRN (16:07)
[2024-06-21] MEDS: KETOROLAC 30 MG/ML VIAL ONE (16:09)
[2024-06-21] MEDS: KETOROLAC TROMETHAMINE 15 MG/ML VIAL IV SCH (16:10)
[2024-06-21] MEDS: SODIUM CHLORIDE 0.9% 1,000 ML IV SCH (16:52)
[2024-06-21] MEDS: oxyCODONE HCL IR 5 MG TAB (IMMEDIATE RELEASE) PO PRN (16:52)
[2024-06-21] MEDS: ASCORBIC ACID 500 MG TAB PO SCH (17:33)
[2024-06-21] MEDS: ceFAZolin 2000MG 2,000 MG/15 ML SYR IV SCH (20:04)
[2024-06-21] MEDS: TRANEXAMIC ACID / 0.7% NACL 1,000 MG/100 ML BAG IV SCH (20:05)
[2024-06-21] MEDS: CYANOCOBALAMIN (B-12) 500 MCG TABLET PO SCH (20:08)
[2024-06-21] MEDS: PANTOprazole 40 MG TAB PO SCH (20:09)
[2024-06-21] MEDS: ASPIRIN 81 MG ECTAB PO SCH (20:10)
[2024-06-21] MEDS: DOCUSATE SODIUM 100 MG CAP PO SCH (20:12)
[2024-06-21] MEDS: SENNA 8.6 MG TAB PO SCH ×2 (20:12)
[2024-06-22] MEDS: DOXEPIN HCL 50 MG CAPSULE PO PRN (00:51)
[2024-06-22 03:16] VITALS: TEMP 97.9; O2SAT 96
[2024-06-22] MEDS: LEVOTHYROXINE SODIUM 25 MCG TABLET PO SCH (06:02)
--- NOTE | 2024-06-22 06:59 | Orthopedic Progress Note ---
Date of Service June 22, 2024 Assessment & Plan (1) Status post left knee replacement: Plan: 68-year-old female postop day 1 from left knee replacement doing reasonably well. Pain skimmed controlled. A reasonable night. Plan: 1. DVT prophylaxis including thigh-high teds, SCDs, aspirin twice a day. 2. PT/OT. She can weight-bear as tolerated. Left total knee protocol. 3. Pain control doing okay with current pain regimen. 4 disposition plan to discharge to home with some home health today if does okay in therapy. (2) Status post right knee replacement: (3) Morbid obesity: (4) CKD (chronic kidney disease): (5) GERD (gastroesophageal reflux disease): (6) Hypothyroidism: Admission and Anticipated Discharge Date Admission Date: June 21, 2024 Subjective 68-year-old female postop day 1 from her left knee replacement. She is doing reasonly well this morning. Some pain but not unmanageable. The pain medicines help. Had a reasonably good night. No chest pain or shortness of breath. Not feeling dizzy or lightheaded. Physical Exam Physical Exam: Physical exam shows a pleasant middle-age female. She is lying in bed and looks pretty comfortable this morning. Examination left leg reveals the dressing be clean dry and intact. She can do a straight leg raise. She can dorsiflex and plantarflex her foot appropriately. She is neurologically intact. Respiratory: normal respiratory effort, lungs clear to auscultation Cardiovascular: RRR, no murmur, no edema Gastrointestinal (Abdomen): normal bowel sounds, soft, nontender, no hepatosplenomegaly Results & Data Vital Signs (Past 12 Hours) Vital Signs Temp Pulse Resp BP Pulse Ox O2 Del Method 06/22/24 03:16 36.6 C 89 18 103/63 96 Room Air 06/21/24 23:06 36.8 C 85 18 137/74 95 Room Air 06/21/24 19:19 36.4 C L 98 H 16 118/67 94 Room Air Laboratory Results Lab results this morning are pending.
[2024-06-22 07:15] LABS: Hematocrit (blood only) 29.8 % (37.0-47.0); Hemoglobin 9.9 g/dl (12.0-16.0); Mean Corpuscular Hemoglobin 28.8 pg (25.0-34.0); Mean Corpuscular Hgb Conc 33.2 g/dL (32.0-36.0); Mean Corpuscular Volume 86.6 fL (80.0-100.0); Mean Platelet Volume 10.2 fL (9.4-12.4); Platelet Count 186 K/uL (130-400); RDW Coefficient of Variation 14.3 % (11.5-14.5); RDW Standard Deviation 45.4 fL (36.4-46.3); Red Blood Count 3.44 M/uL (4.20-5.40); White Blood Count 17.27 K/ul (4.8-10.8)
[2024-06-22 07:34] LABS: BUN Creatinine Ratio 19.6 (10-20); Calcium 8.9 mg/dl (8.6-10.3); Creatinine Clr Calc Pharmacy 73.3 ml/min; Potassium 3.8 mmol/L (3.5-5.1)
[2024-06-22 08:08] VITALS: BP 145/79; PULSE 86; RESP 16
[2024-06-22] MEDS: MULTIVITAMIN TAB PO SCH (08:09)
[2024-06-22] MEDS: CHOLECALCIFEROL 125 MCG (5,000 UNITS) TAB PO SCH (08:10)
[2024-06-22] MEDS: dilTIAZem HCL 120 MG CAPCR PO SCH (08:10)
[2024-06-22] MEDS: CALCIUM ACETATE 667 MG CAP/TAB PO SCH (08:10)
[2024-06-22] MEDS: lisinopril 10 MG TAB PO SCH (08:10)
[2024-06-22] MEDS: dexAMETHasone 10 MG in SYRINGE 0 ML IV SCH (08:11)
[2024-06-22] MEDS: TOPIRAMATE 50 MG TAB PO SCH (08:11)
[2024-06-22] MEDS: FLUTICASONE/VILANTEROL 100/25MCG 14 PUFFS/INHALER INH SCH (08:18)
[2024-06-22] MEDS: POTASSIUM CHLORIDE 10 MEQ TABCR PO SCH (08:21)
[2024-06-22] MEDS ORDERED: LEVOTHYROXINE SODIUM 25 MCG TABLET PO SCH (09:00)
[2024-06-22] MEDS: ONDANSETRON INJ 2 MG/ML 2 ML VIAL IV PRN (11:23)
== END 2024-06-22 12:49 | disposition home health service (06) ==
LOC: ASU 07:46 → PACUINP 07:46 → 3W 16:38